=== PATIENT | female | born 1980 | race Caucasian/White ===

== ENCOUNTER 2020-03-12 00:11 | Observation (INO) ==
[2020-03-12] MEDS ORDERED: AMPICILLIN/SULBACTAM SOD 3,000 MG in 0.9 % SODIUM CHLORIDE 100 ML IV STA (00:48)
[2020-03-12 01:16] LABS: Basophils # (auto) 0.03 K/uL (0-0.2); Basophils % (auto) 0.4 %; Eosinophils # (auto) 0.07 K/uL (0-0.5); Hematocrit (blood only) 37.9 % (37-47); Hemoglobin 13.1 g/dL (12.0-16.0); Immature Granulocytes # (auto) 0.02 K/uL (0.00-0.02); Immature Granulocytes % (auto) 0.3 %; Lymphocytes # (auto) 3.03 K/uL (1.2-3.4); Lymphocytes % (auto) 43.8 %; Mean Corpuscular Hemoglobin 29.4 pg (25-34); Mean Corpuscular Hgb Conc 34.6 g/dL (32-36); Mean Corpuscular Volume 85.2 fL (80-100); Mean Platelet Volume 10.3 fL (7.4-10.4); Monocytes % (auto) 8.7 %; Neutrophils # (auto) 3.16 K/uL (1.4-6.5); Neutrophils % (auto) 45.8 %; Platelet Count 334 K/uL (130-400); RDW Standard Deviation 40.4 fL (36.4-46.3); Red Blood Count 4.45 M/uL (4.2-5.4); White Blood Count 6.91 K/uL (4.8-10.8)
[2020-03-12] MEDS ORDERED: ACETAMINOPHEN 325 MG TAB PO PRN (01:27)
[2020-03-12] MEDS ORDERED: ONDANSETRON INJ 2 MG/ML 2 ML VIAL IV PRN ×2 (01:27→11:34)
[2020-03-12] MEDS ORDERED: MoRPHine SULFATE 2 MG/ML CARP IV PRN (01:29)
[2020-03-12] MEDS ORDERED: MoRPHine SULFATE 4 MG/ML 1 ML CARP\\VIAL IV PRN (01:29)
[2020-03-12] MEDS ORDERED: IBUPROFEN 600 MG TAB PO PRN (01:29)
[2020-03-12] MEDS ORDERED: OXYCODONE HCL IR 5 MG TAB (IMMEDIATE RELEASE) PO PRN ×2 (01:29)
[2020-03-12 01:34] LABS: Albumin Level 4.1 gm/dl (3.4-5.0); BUN Creatinine Ratio 12.7 (10-20); Calcium 8.4 mg/dl (8.5-10.1); Creatinine Clr Calc Pharmacy 73.4 ml/min; Est GFR (African American) 79.5; Est GFR (Non-African American) 68.6; Potassium 3.8 mmol/L (3.5-5.1)
[2020-03-12 01:36] LABS: Albumin Globulin Ratio 1.1 (0.9-2); Bilirubin,Total 0.3 mg/dl (0.2-1); Globulin 3.6 gm/dl (2.5-4.0); Total Protein 7.7 gm/dl (6.4-8.2)
--- NOTE | 2020-03-12 01:41 | History & Physical Report ---
Date of Service March 12, 2020 Assessment & Plan (1) Dog bite of extremity: I recommended admission for parenteral antibiotics and observation for surgical I&D in the am. This morning we discussed the surgical procedure in detail. We discussed the role involve cleaning and closing the wound to remove possibility of deep infection. Reviewed the risks of surgery, which included but were not limited to, infection, neurovascular injury, scar development, need for repeat or revision procedures, loss of motion, and complications related to anesthesia. She is agreeable to proceed. Informed consent was documented this morning. (2) Open wound: Admission and Anticipated Discharge Date Admission Date: 03/12 Anticipated date of discharge: 03/12/20 History of Present Illness Chief Complaint: right forearm dog bite Primary Care Provider: NADIYA PCP 39 yo F bitten on the right forearm by friends dog on 03/11/2020, resulting in contaminated open wound that was deemed unrepairable with local anesthetic in the emergency room last night. The emergency room staff reported exposed fascia and tendon in a longitudinal and irregular bite wound. Patient reports that she knew the dog. The dog is vaccinated and up-to-date. She denies any previous right upper extremity injuries. She reports good comfort since the ED care and splinting last night. 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 There is no obvious drainage in the wound. The wrist and digits are free of the splint and have intact and full arc of motion. Sensation is grossly intact to all upper extremity distributions. There is less than 2- second cap refill. The emergency room reported clean contaminated wound with irregular borders and exposed fascia and disrupted muscle bellies. Eyes: PERRL, conjunctivae normal, anicteric sclerae ENMT: external ear and nose normal, oropharynx normal Neck: normal visual inspection Respiratory: normal respiratory effort; no respiratory distress Cardiovascular: Extremities: normal capillary refill; no edema Musculoskeletal: no cyanosis or clubbing, extremities motor strength 5/5 Skin: no rashes, warm and dry Psychiatric: Orientation: alert, oriented x 3 and cooperative Apperance: appropriately dressed and appropriately groomed Affect: + tearful affect Results & Data Results & Data ([facility]) Vital Signs (Past 12 Hours) Vital Signs Temp Pulse Resp BP Pulse Ox 03/12/20 00:16 37.3 C 148 H 18 150/84 H 98 AP and lateral views of the right forearm demonstrate no obvious fractures or acute bone injuries. There is an obvious soft tissue defect in the medial aspect or about the common flexor origin. Code Status & VTE Plan VTE Prophylaxis Plan VTE Prophylaxis will be ordered: Yes PG Care Time/CCT Total # of Minutes Spent Total Time Spent with Patient: Total time spent is greater than 50% in coordination of care (as documented) at patient's floor/unit and/or counseling patient: Coding Level of Care Code 94115 OBS Care - Level 3 Diagnoses Dog bite of extremity Open wound T14.8XXA
[2020-03-12] MEDS ORDERED: DIPHTHERIA/TETANUS/PERTUSSIS 0.5 ML SYR/VIAL IM ONE (01:51)
--- NOTE | 2020-03-12 08:24 | XRay Report ---
XR forearm RT 2V CLINICAL HISTORY: Dog bite COMPARISON: None FINDINGS: Soft tissue irregularity represents wound overlying the anterior proximal right forearm. N o fracture or radiopaque foreign bodies are identified on this examination. IMPRESSION: No acute fracture of the right radius or ulna. ACT 112: Negative or not required by law. Electronically signed by: Connor Baeza M.D. 03/12/2020 8:23 AM
[2020-03-12] MEDS: AMPICILLIN/SULBACTAM SOD 3,000 MG in 0.9 % SODIUM CHLORIDE 100 ML IV SCH ×2 (09:31→16:53)
--- NOTE | 2020-03-12 09:49 | Emergency Department Note ---
History of Present Illness General Chief complaint: Animal Bite Stated complaint: DOG BITE - RT ARM Time Seen by Provider: 03/12/20 00:40 History of Present Illness Maximum Pain Intensity: 7 This is a 39-year-old female that presents to the emergency department via private vehicle with complaints "dog bite, right arm". Patient is right-hand dominant. She states that earlier today about 1 hour prior to arrival she was bitten by a 60 pound lab. She states that the dog was in its kennel and she was petting the dog and it bit her proximal forearm. She notes that she then came straight here. She does admit to drinking alcohol this evening but does not feel intoxicated at this time. Overall discomfort is a 7/10. She does state that the dog's vaccinations are up-to-date but she is unsure about her tetanus vaccine status. Home Medications Home Medications Medication Instructions Recorded Confirmed Type No Known Home Medications 03/12/20 03/12/20 History Allergies Allergy/AdvReac Type Severity Reaction Status Date / Time No Known Allergies Allergy Unverified 03/12/20 01:24 Past Med/Surg History Medical History delivery delivered Dog bite of extremity No pertinent past medical history Surgical History History of removal of ovarian cyst No pertinent past surgical history Social History Preferred Language: Prydeinig Communication Ability: Effective Coding Director Required: No Beliefs That Will Affect Care: None Current Living Situation: Spouse Other Information That Helps Us Care for You: No Feels Safe at Home: Yes Smoking Status: Former smoker Tobacco Type: cigarettes ; Hx Alcohol Use: Yes Alcohol type: beer, wine and hard liquor Hx Substance Use: No Review of Systems A total of 6 systems reviewed and were otherwise negative Physical Exam Vital Signs Vital Signs - 24 hr 03/12/20 00:16 Temperature 37.3 C Temperature Source Oral Pulse Rate 148 H Respiratory Rate 18 Respiratory Effort / Characteristics Non-Labored Spontaneous Respiratory Depth Normal Respiratory Pattern Regular Blood Pressure 150/84 H Blood Pressure Mean 106 Blood Pressure Position Sitting Pulse Oximetry 98 Oxygen Delivery Method Room Air Sepsis Recent Fever Within 48 Hours No Sepsis Action Taken by Nursing No Action Required VITAL SIGNS - Vital signs and nursing notes were reviewed. Stable and afebrile. GENERAL - 39-year-old female appearing her stated age who is in no acute distress. Communicates well with provider and answers questions appropriately. SKIN -there is a large wound to the patient's right proximal ventral forearm in the transverse plane measuring 15 cm in length and gaping about 3 cm to a depth down to the level of the flexor musculature. There is evidence of multiple tears at the superficial level leonie-laceration. LUNGS - Chest wall symmetric without accessory muscle use, intercostals retractions, or central cyanosis. Normal vesicular breath sounds CTA B/L. No wheezes, rales, or rhonchi appreciated. CARDIAC - RRR with S1/S2. No murmur, rubs, or gallops appreciated. EXTREMITIES - No clubbing or peripheral cyanosis. Skin as above. Full range of motion of the right arm. Produce Sorter strength and right radial pulse within normal l imits. Cap refill within normal limits. +5/5 strength noted in UE/LE bilaterally. Course Administered Medications Ampicillin Sodium/Sulbactam Sodium 3,000 mg/ Sodium Chloride 108 mls @ 200 mls/hr IV Q6H LUPILLO; Protocol Stop: 03/14/20 07:59 Last Admin: 03/12/20 09:31 Dose: 200 mls/hr Documented by: [id number] Discontinued Medications Diphtheria/Pertussis/Tetanus Vacc (Adacel) 0.5 ml IM .ONCE ONE Stop: 03/12/20 01:52 Last Admin: 03/12/20 02:03 Dose: 0.5 ml Documented by: [id number] Ampicillin Sodium/Sulbactam Sodium 3,000 mg/ Sodium Chloride 108 mls @ 200 mls/hr IV NOW STA; Protocol Stop: 03/12/20 01:20 Last Infusion: 03/12/20 02:06 Dose: 0 mls/hr Documented by: [id number] Admin: 03/12/20 01:26 Dose: 200 mls/hr Documented by: [id number] Medical Decision Making Laboratory Data Result diagrams: 03/12/20 01:00 03/12/20 01:00 Lab Results 03/12/20 03/12/20 Range/Units 01:00 01:00 WBC 6.91 (4.8-10.8) K/uL RBC 4.45 (4.2-5.4) M/uL Hgb 13.1 (12.0-16.0) g/dL Hct 37.9 (37-47) % MCV 85.2 (80-100) fL MCH 29.4 (25-34) pg MCHC 34.6 (32-36) g/dL RDW Std Deviation 40.4 (36.4-46.3) fL RDW Coeff of Jacqui 13.0 (11.5-14.5) % Plt Count 334 (130-400) K/uL MPV 10.3 (7.4-10.4) fL Immature Gran % (Auto) 0.3 % Neut % (Auto) 45.8 % Lymph % (Auto) 43.8 % [place] % (Auto) 8.7 % Eos % (Auto) 1.0 % Baso % (Auto) 0.4 % Immature Gran # (Auto) 0.02 (0.00-0.02) K/uL Neut # (Auto) 3.16 (1.4-6.5) K/uL Lymph # (Auto) 3.03 (1.2-3.4) K/uL [place] # (Auto) 0.60 H (0.11-0.59) K/uL Eos # (Auto) 0.07 (0-0.5) K/uL Baso # (Auto) 0.03 (0-0.2) K/uL Sodium 144 (136-145) mmol/L Potassium 3.8 (3.5-5.1) mmol/L Chloride 109 H (98-107) mmol/L Carbon Dioxide 26 (21-32) mmol/L Anion Gap 9.0 (3-11) BUN 13 (7-18) mg/dl Creatinine 1.04 (0.6-1.2) mg/dl Est Cr Clr Drug Dosing 73.4 ml/min Est GFR ( Amer) 79.5 Est GFR (Non-Af Amer) 68.6 BUN/Creatinine Ratio 12.7 (10-20) Glucose 116 H (70-99) mg/dl Calcium 8.4 L (8.5-10.1) mg/dl Total Bilirubin 0.3 (0.2-1) mg/dl AST 15 (15-37) U/L ALT 24 (12-78) U/L Alkaline Phosphatase 47 (45-117) U/L Total Protein 7.7 (6.4-8.2) gm/dl Albumin 4.1 (3.4-5.0) gm/dl Globulin 3.6 (2.5-4.0) gm/dl Albumin/Globulin Ratio 1.1 (0.9-2) MDM Narrative Patient was seen and evaluated as above in room C1. Review was performed of nursing notes and vital signs. After obtaining a thorough history and physical examination the above work up was performed. She presents to us today with a dog bite to the right proximal forearm. She is right-hand dominant. This is an extensive wound that will require copious irrigation. Patient was quite worked up upon presentation but was calmed down after discussing options of care. Basic labs were obtained and there is no leukocytosis or anemia. No emergent metabolic disturbance. The dog bite she sustained I do believe will require irrigation that would be best done in the operative suite. I discussed this with the attending physician who also evaluated the wound and we were in agreement. Patient also was in agreement with plan of care. I do believe that it would be in the best interest of the patient to have this repaired in the operative suite. I believe this is the best way to decrease chance of infection. I discussed the case with Dr. Escudero of orthopedics. Patient will be admitted and then taken to the operative suite for washout and repair of the wound. I did pack the wound with sterile saline with a small amount of Betadine on the dressings. I also irrigated the wound with sterile saline prior to placing these on the wound. This was then secured in place with Kerlix and she was splinted in a posterior long-arm. I updated her tetanus and IV Unasyn was ordered. Please refer to further documentation regarding her stay. In the evaluation and treatment of this patient the following differential diagnoses were entertained: Fracture, dislocation, subluxation, laceration, retained foreign body, among others. Impression & Plan Dog bite of extremity, Laceration of arm, right, complicated Discharge Plan Visit Data *Final* Discharge Date/Time: 03/12/20 02:26 Chief Complaint: Animal Bite Stated Complaint: DOG BITE - RT ARM ED Provider: Hallie Seo ED Midlevel Provider: Nicola Galaviz Discharge Problem: Dog bite of extremity, Laceration of arm, right, complicated Patient Disposition: Admitted As Inpatient Condition: Good Discharge Instructions Interventions: ED Discharge Assessment Last Done: 03/12/20 02:26
[2020-03-12] MEDS ORDERED: PROPOFOL IV EMULSION 10 MG/ML 20 ML VIAL IV ONE ×2 (10:32→12:01)
[2020-03-12] MEDS ORDERED: ONDANSETRON INJ 2 MG/ML 2 ML VIAL ONE (10:32)
[2020-03-12] MEDS ORDERED: LIDOCAINE HCL 2% 2 ML VIAL/AMP(20MG/ML) INFIL ONE (10:32)
[2020-03-12] MEDS ORDERED: fentaNYL citrate 100 MCG/2 ML VIAL ONE ×2 (10:33→12:00)
[2020-03-12] MEDS ORDERED: MIDAZOLAM HCL 1 MG/ML 2ML VIAL ONE (10:33)
[2020-03-12] MEDS ORDERED: BUPIVACAINE 0.25% 30 ML VIAL ONE (11:32)
[2020-03-12] MEDS ORDERED: LIDOCAINE/EPINEPHRINE 1% 20 ML VIAL ONE (11:32)
[2020-03-12] MEDS ORDERED: fentaNYL citrate 100 MCG/2 ML VIAL IV PRN (11:34)
[2020-03-12] MEDS ORDERED: ePHEDrine sulfate 50 MG/ML AMP IV PRN (11:34)
[2020-03-12] MEDS ORDERED: HYDROmorphone INJ 2 MG/ML SYR/VIAL IV PRN (11:34)
[2020-03-12] MEDS ORDERED: ATROPINE SULFATE 0.1 MG/ML 10ML SYR IV PRN (11:34)
--- NOTE | 2020-03-12 11:40 | Anesthesiology Consultation ---
Date of Service March 12, 2020 Assessment & Plan ASA ASA1 Proposed Anesthesia Anesthesia Type: General Risk / Benefits Reviewed With: PT / POA / Parent / Guardian, Accepts Plan and Informed Consent Obtained History Surgery Operation Date: 03/12/20 10:45 Proposed Procedures p Incision and Drainage Extremity - Kentrell Escudero Height/Weight Height: 5 ft 4 in Weight: 74.4 kg Allergies Allergy/AdvReac Type Severity Reaction Status Date / Time No Known Allergies Allergy Unverified 03/12/20 01:24 Medications Home Medications Medication Instructions Recorded Confirmed Last Taken No Known Home Medications 03/12/20 03/12/20 Unknown Active Medications Generic Name Dose Route Start Last Admin Trade Name Freq PRN Reason Stop Dose Admin Ampicillin Sodium/Sulbactam 108 mls @ 200 mls/hr 03/12/20 08:00 03/12/20 10:23 Sodium 3,000 mg/ Sodium IV 03/14/20 07:59 Infused Chloride Q6H LUPILLO Infusion Protocol NPO Date Last Intake of Fluids: 03/12/20 Time Last Intake of Fluids: 00:00 Date Last Intake of Solids: 03/12/20 Time Last Intake of Solids: 00:00 Past Medical History Medical History delivery delivered Dog bite of extremity (Acute) No pertinent past medical history Exercise / Class Metabolic Activity II 4-5 Yardwork/Stairs/Walk up hill Past Surgical History Surgical History History of removal of ovarian cyst No pertinent past surgical history Past Anesthesia History No Hx of Anesthesia Complications and No Family Hx of Anesthesia Complications History of PONV No Hx of PONV and No Hx of Motion Sickness Social History Smoking Status: Former smoker tobacco type: cigarettes Hx Alcohol Use: Yes Alcohol type: beer, wine and hard liquor alcohol intake frequency: a few times a month Hx Substance Use: No Review of Systems denies fever/cough/ colds/ chest pain/ SOB/ SHAMIKA Constitutional: no fever and no chills Respiratory: no cough and no dyspnea denies SHAMIKA Cardiovascular: no chest pain and no dyspnea on exertion Physical Exam Vital Signs Last Vital Signs Temp 37.1 C 03/12/20 07:42 Pulse 106 H 03/12/20 07:42 Resp 17 03/12/20 07:42 BP 114/69 05/24/20 07:42 Pulse Ox 97 03/12/20 07:42 ENMT Mouth: no TMJ abnormality and no dentition abnormality Thyromental Distance: > or= 3.5 Finger Breadths Mallampati Class: II Neck neck extension not limited Respiratory normal respiratory effort; no respiratory distress Auscultation: lungs clear to auscultation bilaterally Cardiovascular Rate/Rhythm: regular rate and regular rhythm Neurologic moves all extremities Psychiatric Orientation: alert and oriented x 3 Testing Laboratory Results 03/12/20 01:00 03/12/20 01:00 03/12/20 02:35 POC Ur Test NEG
[2020-03-12] MEDS ORDERED: DEXAMETHASONE SOD INJ 4 MG/ML VIAL ONE (11:59)
[2020-03-12] MEDS ORDERED: HYDROmorphone INJ 2 MG/ML SYR/VIAL ONE (12:23)
--- NOTE | 2020-03-12 13:31 | Post Operative Brief Note ---
PG Immediate Post Op with CF Date of Surgery March 12, 2020 Pre & Post Diagnosis Operation Date: 03/12/20 10:45 Pre-Op Diagnosis: Dog Bite Wound Right Arm Post-Op Diagnosis: Dog Bite Wound Right Arm I identified the patient and participated in the time-out.: Yes Procedure Operation Date: 03/12/20 10:45 Actual Procedures p Right Upper Extremity Irrigation and Debridement with Delayed Primary Closure(Right) - Kentrell Escudero Surgeon Kentrell Escudero Customer Service Administrator Francesco Rosas PA-C Estimated Blood Loss 10 Findings Consistent with Post-Op Diagnosis Specimens Specimen Description: No Specimen
--- NOTE | 2020-03-12 13:43 | Operative Report ---
PG Post Operative Report Pre & Post Diagnosis Operation Date: 03/12/20 10:45 Pre-Op Diagnosis: Dog Bite Wound Right Arm Post-Op Diagnosis: Dog Bite Wound Right Arm I identified the patient and participated in the time-out.: Yes Procedure Operation Date: 03/12/20 10:45 Actual Procedures p Right Upper Extremity Irrigation and Debridement with Delayed Primary Closure(Right) - Kentrell Escudero Surgeon Kentrell Escudero Material Distributor Francesco Rosas PA-C Estimated Blood Loss 10 Findings See Below The medial forearm had a full-thickness laceration with a distally based flap and a separate penetrating tooth wound in the middle aspect of that flap. The traumatic wound measured 10 cm in length and was horizontally oriented. It gaped open approximately 8 cm due to the degloving distally. There was penetration through the subcutaneous fat down to muscle fascia which was exposed. There was a separate 3 x 2 cm penetrating tooth wound. There was a small strip of skin there was partial-thickness that was torn and degloved that had to be debrided. There was sufficient mobility of the remaining wound edges to advance and close with the elbow in extension. 1 single 3-0 Monocryl was used deep in the penetrating wound to approximate subcutaneous tissue to avoid a deep soft tissue defect. The wound was closed with 3-0 nylon. Specimens None Anesthesia Type General Complications none Disposition Accompanied Patient To Recovery: No Disposition: Recovery Room Indications 39-year-old female who unfortunately sustained a dog bite wound to the medial proximal right forearm that was full-thickness with exposed fascia. The soft tissue involvement was such that it was deemed not closable in the emergency room with a local anesthetic. I counseled her this morning on the benefits of surgical debridement under anesthesia to remove contamination of the deep involved soft tissues. Discussed the risk of surgery in detail. The risks I discussed included but other to infection, neurovascular injury, need for additional surgery, deep infection despite this debridement, and complications related to anesthesia. She has appropriate questions, demonstrated good understanding, and elected proceed with surgery. Informed consent was obtained in the hospital room this morning. Description of Procedure On the day of surgery, the patient was greeted in the preoperative holding area. The informed consent was reviewed and confirmed by myself and the patient. The patient identified the surgical site and was marked by me. The patient was then turned over to anesthesia. She is placed supine on the OR table with a hand table attachment. A nonsterile tourniquet was placed high in the upper extremity. The right upper extremity was then prepped and draped in usual sterile fashion using Betadine scrub and paint. Surgical timeout was called by the circulating nurse and verified by all present. Antibiotics have been infused per her schedule on admission. Surgery was initiated by exsanguination of the extremity using the Esmarch bandage and inflating the tourniquet to 250 mmHg for a total of 11 minutes. The distal wound edge had ecchymotic and likely not viable tissue at the edges, so sharp debridement was carried out. Again there was a small strip of partial- thickness tissue that involve the epidermis that was debrided segmentally. This allowed a single wound edge distally to be approximated to the proximal edge. There was a separate penetrating tooth wound measuring 2 x 3 cm in the degloved distal flap was also debrided along the edges. There was involvement of the subcutaneous fat and superficial fascia which was also sharply debrided. A total of 2 L of irrigation was then used throughout the wound bed. The tourniquet was then deflated. Hemostasis was achieved with a minimal use of Bovie electrocautery. The wound was irrigated once again. A single 3-0 Monocryl suture was used in the penetrating wound to approximate the subcutaneous tissue to avoid a soft tissue defect in this portion. The skin edges was then approximated with interrupted 3-0 nylon suture in a vertical mattress fashion. There was some revision of the wound at the edge and in the most central portion to avoid dog ear and achieve everted and well approximated skin edges. Sutures were spaced allow some drainage. The wounds were then dressed with sterile Xeroform, sterile gauze and ABD contained by abundant web roll dressing. The arm was placed in a posterior Orthoplast splint and contained by an Alex wrap. Disposition: She will be discharged today after the next dose of Unasyn. She should follow-up in my clinic or another by another physician close to home in 10 to 14 days for postoperative wound check and suture removal. She has been instructed to monitor for fever and contact the clinic with any concerns. The splint and dressing should remain in place for at least 3 days, after which simple dry dressings can be applied. The physician orthodontist assistant, Francesco Valadez PA-C, was essential to the performance this case for positioning and retraction. I attest to the content of the Intraoperative Record and any orders documented therein. Any exceptions are noted below.
--- NOTE | 2020-03-12 14:09 | Anesthesiology Progress Note ---
Date of Service March 12, 2020 Anesthesia Post Procedure Vital Signs Vital Signs: Temp Pulse Pulse Pulse Resp BP BP 03/12/20 14:05 101 H 20 144/84 H 03/12/20 13:55 103 H 20 136/87 03/12/20 13:48 36.8 C 116 H 15 132/75 03/12/20 07:42 37.1 C 106 H 17 114/69 03/12/20 02:51 36.9 C 90 18 111/71 03/12/20 02:03 111 H 20 145/86 H 03/12/20 00:16 37.3 C 148 H 18 150/84 H Pulse Ox 03/12/20 14:05 96 03/12/20 13:55 95 03/12/20 13:48 100 03/12/20 07:42 97 03/12/20 02:51 97 03/12/20 02:03 98 03/12/20 00:16 98 Pain Intensity Right Arm: Pain Intensity: 4 Transfer of Care Handoff Completed per policy Notes Mental Status: alert / awake / arousable and participated in evaluation Patient Amnestic to Procedure: Yes Nausea / Vomiting: adequately controlled Pain: adequately controlled Airway Patency, RR, SpO2: stable & adequate BP & HR: stable & adequate Hydration State: stable & adequate Anesthetic Complications: no major complications apparent and Pt Satisfied with anesthetic care
[2020-03-12] MEDS ORDERED: OXYCODONE IR HOME PACK PO ONE (16:09)
[2020-03-12 18:11] VITALS: BP 125/75; PULSE 81; TEMP 98.2; O2SAT 98
--- NOTE | 2020-03-28 15:56 | Discharge Summary ---
Date of Service March 28, 2020 Admission HPI Per Admitting Provider 39 yo F bitten on the right forearm by friends dog on 03/11/2020, resulting in contaminated open wound that was deemed unrepairable with local anesthetic in the emergency room last night. The emergency room staff reported exposed fascia and tendon in a longitudinal and irregular bite wound. Patient reports that she knew the dog. The dog is vaccinated and up-to-date. She denies any previous right upper extremity injuries. She reports good comfort since the ED care and splinting last night. Admission Exam Per Admitting Provider The right upper extremity was neurovascular intact. There was a full-thickness wound with exposed underlying fascia that was clean and contaminated from the dog bite. Principal Diagnosis Right upper extremity open dog bite wound with soft tissue defect. Discharge Exam Right upper extremity was well dressed with no evidence of drainage. She remained neurovascularly intact to all digits. Constitutional well developed and well nourished; no acute distress and not intoxicated appearing ENMT external ear and nose normal, oropharynx normal Respiratory normal respiratory effort; no respiratory distress Cardiovascular Extremities: normal capillary refill; no edema Skin no rashes, warm and dry Psychiatric A+Ox3, euthymic affect Discharge Data Allergies Allergy/AdvReac Type Severity Reaction Status Date / Time No Known Allergies Allergy Unverified 03/12/20 01:24 Procedures Performed Operation Date: 03/12/20 10:45 Actual Procedures p Right Upper Extremity Irrigation and Debridement with Delayed Primary Closure(Right) - [facility] Course (1) Dog bite of extremity: The patient was admitted to the hospital in observation status to await the morning OR team for formal irrigation, debridement, and delayed primary closure. She was initiated on parenteral antibiotics to cover dog bite organisms. On the morning of surgery she was neurovascularly intact. We discussed the risk-benefit surgery in detail, as outlined in the hospital note. She is agreeable to proceed with surgery and informed consent was obtained in the hospital floor. She underwent uncomplicated irrigation debridement and delayed primary closure of this open dog bite wound. Postoperatively she was found to have tolerable pain with oral pain medications and has completed appropriate antibiotic prophylaxis. She was found otherwise stable for discharge home to outpatient care near her home. Her was updated on the progress of the surgery and reported that they have a orthopedic surgeon that can follow-up with near home. (2) Laceration of arm, right, complicated: See above (3) Open wound: See above Total Time Total Time Spent Total Time Spent (In Minutes): 30 Total Time Includes: Examination of the Patient, Discharge Planning, Medication Reconciliation and Other Discharge Plan Discharge Items Patient Disposition: Home - Self-Care Reason For Visit: DOG BITE Discharge Diagnosis: Same Condition on Discharge: Good Activity: Per Instructions section Non-emergency contact: Surgeon Call non-emergency contact if: you have any medication questions, your pain is not controlled and your temperature is above 101 Follow-up/Referrals: Kentrell Escudero [Surgeon] - (10 to 14 days for wound check and possible suture removal) PCP,NADIYA [Primary Care Provider] - Diet: Regular Addtl Attending Provider Instructions: SPLINT/WOUND CARE: Leave your splint in place and keep the area clean and dry for 3 days. After 3 days you may remove the splint and unwrap the dressing. At that point you can carefully shower with the wound uncovered, but do not soak or submerge the wound. Redress with a light clean dressing daily until dry for greater than 24 hours. Your sutures should be removed by a physician after wound inspection in 10 to 14 days. You may use her hand for light activities. Rest the arm in the sling for comfort. You may adjust the sling as needed. If the splint becomes wet, dirty, uncomfortable, or loose, please call the Orthopedic Clinic ([phone]) to arrange to be evaluated. Please call the Ortho Clinic if you have any questions or concerns. PAIN CONTROL: Elevation is your best friend. Swelling is simply fluid. Elevation will allow the fluid to run down hill, reduce swelling, and decrease pain. Medications: 1. Oxycodone (OxyIR) 1-2 tablet(s) orally every 4 hours for pain as needed. Use with Tylenol. Begin tapering OxyIR as soon as possible: reduce from 2 to 1 pills per dose, then spread out the doses over greater time intervals, then try to use only for therapy or for comfort while sleeping. Continue to use regular Tylenol until pain subsides. 2. OVER THE COUNTER Tylenol (generic = acetaminophen): 975-1000 mg every 8 hours orally. Regular dosing of Tylenol is an important part of your baseline pain control. Do not taper Tylenol until you have successfully tapered off of regular OxyIR. Do not take more than 3000mg of Tylenol per day. It is okay to use Tylenol with other anti-inflammatories such as Advil, Motrin, ibuprofen, naproxen, Aleve. 3. Colace (100mg): take 1-2 tabs twice daily to avoid constipation from OxyIR or other narcotics. OVER THE COUNTER WHEN TO CALL. If you develop any of the following symptoms, please contact the [facility] at [phone] or the Emergency room (after hours): Temperature greater than 100.5 taken twice, difficulty breathing, bleeding, fever and chills, increased pain unrelieved by pain meds, uncomfortable cast or splint, or any other concerns. Pending Studies at Discharge: No Stand-Alone Forms: My [facility] [employer], Opioid Pain Management, Smoking Cessation Medications and DC Order Prescriptions: New oxycodone 5 mg tablet 5 - 10 mg PO Q4H MDD 6 tablets PRN (Reason: pain) Qty: 5 RF: 0 No Action No Known Home Medications RF: 0 Discharge Orders: Discharge Order (Routine); Ordered 03/12/20 Ordered By: Kentrell Spicer/Other Patient Handouts: Drainage Abscess, Contusion Bone Tx, ED Animal Bite General Admission Data Admit Date/Time: 03/12/20 01:24 Attending Provider: Kentrell Escudero Admit Provider: Kentrell Escudero Primary Care Provider: PCP,NO Other Interventions: Discharge Summary Assessment (RN) Last Done: 03/12/20 16:01 DC Date/Time DO NOT enter until pt leaves facility: 03/12/20 18:47 Coding Level of Care Code 52175 OBS Care - Discharge Diagnoses Dog bite of extremity Laceration of arm, right, complicated S41.111A Open wound T14.8XXA
== END 2020-03-12 18:47 | disposition home or self-care (01) ==
LOC: ED 00:11 → 3E 00:11